=== PATIENT | male | born 1955 | race Caucasian/White ===

== ENCOUNTER 2019-01-07 06:27 | Day surgery (SDC) | payer OTHER ==
[2019-01-07] MEDS ORDERED: Ringers Lactate 1,000 ML IV ONE (06:31)
[2019-01-07] MEDS ORDERED: LIDOCAINE 1% MPF 30 ML VIAL ONE (07:12)
[2019-01-07] MEDS ORDERED: PROPOFOL 200 MG/20 ML VIAL IV ONE ×2 (07:12→08:19)
[2019-01-07] MEDS ORDERED: SUCCINYLCHOLINE 20 MG/ML (10 ML) IV ONE (07:22)
--- NOTE | 2019-01-07 08:23 | ENDO RPT ---
[address], [address] COLONOSCOPY PROCEDURE REPORT EXAM DATE: 01/07/2019 PATIENT NAME: Wilfredo Raymundo MR #: [id number] BIRTHDATE: 1955 ATTENDING: Braxton Blair Dr STATUS: outpatient OPTOELECTRONICS ENGINEER: Kavon Montes RN, Deann Cooper, and Nargis Bai RN INDICATIONS: The patient is a 63 yr old Male here for a colonoscopy due to colon cancer screening and family history of colon cancer PROCEDURE PERFORMED: Colonoscopy with biopsy - cold polypectomy, Colonoscopy with snare polypectomy, and Colon w/ endoclip MEDICATIONS: Per Anesthesia. ESTIMATED BLOOD LOSS: None CONSENT: The patient understands the risks and benefits of the procedure and understands that these risks include, but are not limited to: sedation, allergic reaction, infection, perforation and/or bleeding. Alternative means of evaluation and treatment include, among others: physical exam, x-rays, and/or surgical intervention. The patient elects to proceed with this endoscopic procedure. DESCRIPTION OF PROCEDURE: During intra-op preparation period all mechanical medical equipment was checked for proper function. Hand hygiene and appropriate measures for infection prevention was taken. Procedure, possible complications, alternatives including, but not limited to possibility of bleeding, perforation, tear, infection, sepsis, need for surgery, need for blood transfusion, were explained to the patient. After the risks, benefits and alternatives of the procedure were thoroughly explained, Informed consent was verified, confirmed and timeout was successfully executed by the treatment team. The patient was placed in the left lateral position. A digital rectal exam was performed and revealed an anal condylomata. After appropriate level of anesthesia, the scope was passed. The EC-[id number] ([id number]) endoscope was introduced through the anus and advanced to the terminal ileum which was intubated for a short distance. The quality of the prep was good. The instrument was then slowly withdrawn as the colon was fully examined. Scope withdrawal time was 9 minutes. COLON FINDINGS: A smooth sessile polyp measuring 3 mm in size was found at the ileocecal valve. A polypectomy was performed with cold forceps. A smooth flat polyp measuring 1 cm in size was found in the ascending colon. A polypectomy was performed with a cold snare. The wound at the site was closed by placing hemoclips. One (1) placement was made. There was minimal blood loss from maneuver subsiding by end of procedure. One (1) placement was made. There was minimal blood loss from maneuver subsiding by end of procedure. A smooth flat polyp measuring 9 mm in size was found in the sigmoid colon. A polypectomy was performed with a cold snare. Bleeding at the site was controlled using hemoclips. One (1) placement was made. There was minimal blood loss from maneuver subsiding by end of procedure. Mild diverticulosis was noted in the sigmoid colon. No bleeding was noted from the diverticulosis. Small internal hemorrhoids were found. Retroflexed views revealed small hemorrhoids. The scope was then completely withdrawn from the patient and the procedure terminated. ADVERSE EVENTS: There were no complications. IMPRESSIONS: 1. 3 mm sessile polyp at the ileocecal valve; polypectomy was performed with cold forceps 2. 1 cm flat polyp in the ascending colon; polypectomy was performed with a cold snare; the wound at the site was closed by placing hemoclips 3. 9 mm flat polyp in the sigmoid colon; polypectomy was performed with a cold snare; bleeding at the site was controlled using hemoclips 4. Mild diverticulosis was noted in the sigmoid colon 5. Small internal hemorrhoids 6. Intubation to terminal ileum 7. 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 await biopsy results 2. avoid NSAIDS for 2 weeks 3. fiber rich diet RECALL: Return in 3 year(s) for Colonoscopy. Braxton Blair Dr eSigned: Braxton Blair Dr 01/07/2019 8:23 AM cc: Toño Alexandre CPT CODES: ICD9 CODES: 1. 078.10 Viral warts, unspecified 2. 211.3 Benign neoplasm of colon PATIENT NAME: Wilfredo Raymundo MR#: [id number]
[2019-01-07 08:26] VITALS: TEMP 98.4
[2019-01-07 08:29] VITALS: BP 98/64; O2SAT 94
== END 2019-01-07 08:35 | disposition home or self-care (01) ==
LOC: OR 06:27
PROVIDERS: ATTEND Internal Medicine Gastroenterology
PROC: 0DBK8ZX Excision of Ascending Colon, Via Natural or Artificial Opening Endoscopic, Diagnostic (ICD-10-PCS; 2019-01-07)
PROC: 0DBN8ZX Excision of Sigmoid Colon, Via Natural or Artificial Opening Endoscopic, Diagnostic (ICD-10-PCS; 2019-01-07)
PROC: 0DBC8ZX Excision of Ileocecal Valve, Via Natural or Artificial Opening Endoscopic, Diagnostic (ICD-10-PCS; principal; 2019-01-07 07:30)
DX: Z12.11 Encounter for screening for malignant neoplasm of colon (principal); D12.2 Benign neoplasm of ascending colon; D12.0 Benign neoplasm of cecum; K57.30 Diverticulosis of large intestine without perforation or abscess without bleeding; K64.8 Other hemorrhoids; G47.33 Obstructive sleep apnea (adult) (pediatric); I10 Essential (primary) hypertension; J44.9 Chronic obstructive pulmonary disease, unspecified; E66.01 Morbid (severe) obesity due to excess calories; M19.90 Unspecified osteoarthritis, unspecified site; F17.200 Nicotine dependence, unspecified, uncomplicated; Z80.0 Family history of malignant neoplasm of digestive organs
CPT/HCPCS: 88305; 45380; 45385; J2704 ×2; J0330; J7120

== ENCOUNTER 2021-07-26 11:03 | Day surgery (SDC) | payer OTHER ==
[2021-07-21 15:28] LABS: Absolute Lymphocytes (CBC) 2.1 K/uL (0.7-4.9); Hematocrit 47.5 % (39.6-49.0); Lymphocytes % 18.9 % (15.3-44.8); Protime INR 0.97; RBC Red Blood Cell Count 4.81 M/uL (4.33-5.43)
[2021-07-21 15:37] LABS: Potassium 4.2 mmol/L (3.5-5.1)
--- NOTE | 2021-07-21 16:13 | RAD REPORT ---
EXAM DESCRIPTION: RAD - Chest Pa And Lat (2 Views) - 07/21/2021 3:22 pm CLINICAL HISTORY: PREOP COMPARISON: CHEST PA AND LAT 2 VIEW dated 09/05/2013 FINDINGS: Lines: None. Lungs: No evidence of edema or pneumonia. Emphysema suspected. Pleural: No significant pleural effusions or pneumothorax. Cardiac: The heart size is within normal limits. Bones: No acute fractures. Other: IMPRESSION: No acute cardiopulmonary disease. The USPTF recommends annual screening for lung cancer with low-dose CT (LDCT) in adults aged 50 to 8 0 years who have a 20 pack-year smoking history and currently smoke or have quit within the past 15 y ears.
[2021-07-21 20:07] LABS: Blood Morphology Comment NOT SEEN (NOT SEEN); Platelet Estimate ADEQ; White Blood Cell Scan OK (OK)
[2021-07-26] MEDS ORDERED: Ringers Lactate 1,000 ML IV ONE (11:39)
[2021-07-26] MEDS ORDERED: CEFAZOLIN/SWI 2gm 2 GM/20 ML SYR ONE (11:39)
[2021-07-26] MEDS ORDERED: TRIAMCINOLONE ACETON 40 MG/ML VIAL ONE (14:02)
[2021-07-26] MEDS ORDERED: propofoL 200 MG/20 ML VIAL IV ONE ×2 (14:07→14:33)
[2021-07-26] MEDS ORDERED: FENTANYL CITR 100 MCG/2 ML ONE (14:08)
[2021-07-26] MEDS ORDERED: LIDOCAINE 1% MPF 5 ML VIAL ONE (14:08)
[2021-07-26] MEDS ORDERED: KETOROLAC 30 MG/ML INJ ONE (14:21)
[2021-07-26] MEDS ORDERED: EPHEDRINE SULF 50 MG/ML VIAL ONE (14:41)
[2021-07-26] MEDS ORDERED: NS 0.9% VIAL 10 ML ONE ×2 (14:41→14:50)
[2021-07-26] MEDS ORDERED: Phenylephrine HCl 10 MG/ML 1 ML VIAL ONE (14:50)
[2021-07-26] MEDS ORDERED: CODEINE 30MG/APAP 300MG TAB PO PRN (15:48)
[2021-07-26] MEDS ORDERED: PHENAZOPYRIDINE 100MG TAB PO ONE (15:48)
[2021-07-26 15:54] VITALS: O2SAT 93
[2021-07-26 16:46] VITALS: BP 110/59; TEMP 98
--- NOTE | 2021-07-26 20:55 | RAD REPORT ---
EXAM DESCRIPTION: RAD - Urethrocystogrphy Retrograde - 07/26/2021 4:09 pm CLINICAL HISTORY: URETHRAL DIALATION COMPARISON: No comparisons FINDINGS/IMPRESSION: Twelve intraoperative fluoroscopic images were submitted showing cannulation of the urethra with a guidewire and catheter with subsequent dilatation of the urethra. Contrast was in jected into the bladder.
--- NOTE | 2021-07-27 02:27 | OP ---
Surgeon: LEA WILLIAMSON Preoperative Diagnoses: 1.Meatal stenosis. 2.Urethral stricture disease/pipestem urethra. Postoperative Diagnoses: 1.Meatal stenosis. 2.Urethral stricture disease/pipestem urethra. Procedures: 1.Meatal dilation using sounds. 2.Cystourethroscopy with brush biopsy. 3.Sequential urethral dilation over a wire. 4.Complex/complicated placement of a 22-Albanian Hernandez catheter over a wire. 5.Intraoperative cystogram. Indication For Procedure: Mr. Raymundo is a 65-year-old gentleman who presented to [facility]rology Clinic with some irritative urinary symptoms. He underwent outpatient cystoscopic evaluation revealing meatal st enosis and significant urethral stricture disease prohibiting passage of the 16-Albanian flexible cysto scope. As a result, I recommended operative evaluation and management and he presents today having r eceived a course of Keflex for presumptive urethritis. Procedure In Detail: The patient was consented in the preoperative holding area before being transfe rred to the operative suite where general anesthesia was induced. He was given Ancef IV antimicrobia l prophylaxis and Pneumoboots were provided for DVT prophylaxis. He was placed in the lithotomy posi tion, padded and secured to the table appropriately. His genitalia were prepped using Hibiclens and he was draped in standard fashion. The case was begun using urethral sounds to dilate the meatus, wh ich was very stenotic from 16-Albanian up to 24-Albanian. I was then able to just insert the tip of the cystoscope into the meatus and visualized a very pinpoint opening there. Using a 5-Albanian ureteral a ccess catheter and a Sensor wire, I was able to navigate the wire beyond this point of visible obstru ction and through the urethra putatively into the bladder. To confirm the intravesical location, giv en his morbid obesity and concern for extreme difficulty in placing a suprapubic catheter where that to become necessary, I requested fluoroscopy to join the case and performed an intraoperative cystogr am where I passed a 5-Albanian ureteral access catheter over the wire and into the bladder. I then con firmed the wire and the catheter coiling within the bladder and injected contrast, which did fill the lumen of the bladder indicating the appropriate intravesical location. After confirming the appropr iate intravesical location of the wire, I then utilized sequential dilators to dilate from 18-Albanian up to 24-Albanian with some difficulty passing most of the catheters via the urethra into the bladder. However, I utilized fluoroscopy to confirm each time that the catheter was appropriately entering th e bladder. After dilating to 24-Albanian, I was then able to pass the cystoscope via the urethra and n avigated into his bladder. Cystoscopic findings revealed a normal bladder with no mucosal lesions, foreign bodies, or stones not ed throughout. The ureteral orifices were orthotopic in location and the urine was essentially clear except for blood that was passed into the bladder retrograde from the urethral dilation. The prosta tic urethra was nonobstructive in appearance with minimal lateral lobar hypertrophy and minimal eleva tion of a median bar without any intravesically projecting median lobe. As a result, I surveyed the now dilated urethra on the way out and it was scarred throughout with fibrinous debride along multipl e points. As a result, I employed a brush biopsy to take a sample of the cells in the area and sent it for cytologic analysis to rule out malignancy. I then attempted to back load the direct vision in ternal urethrotome into his urethra using the blunt roller operator, but despite further dilation of his wendy tus using sounds, I was unable to successfully navigate it into/beyond his meatus. As a result, furt her attempts to incise the scarred area were aborted and I then placed a guidewire into his bladder u nder direct vision cystoscopically and passed a 22-Albanian urethral Hernandez catheter over the wire into the bladder with great difficulty. I confirmed the catheter is in appropriate intravesical location by observing drainage of urine and then retrograde injecting contrast, again using fluoroscopy to con firm appropriate intravesical filling with contrast via cystogram. Once this was done, I filled the balloon with 20 cc of sterile water and the patient was then taken out of the lithotomy position. Hi s catheter was secured to his upper thigh using a catheter securing device, and he was awakened from general anesthesia. He was then transferred to a stretcher and then to the recovery room in good con dition. Complications: None. Discharge Disposition: I am going to discharge him with a prescription for Levaquin 500 mg once adele y for at least 12-14 days. He may follow up in the Urology Clinic somewhere between 10-14 days from now for catheter removal and voiding trial. He should continue the Levaquin for at least 1 day after the catheter was removed. Subsequent followup would then be for cystoscopic re-evaluation somewhere in 2-3 months from today to ensure absence of restenosis of his urethra or the meatus. Otherwise, t he patient was instructed to employ bacitracin around the meatus and the glans of the penis once a da y and apply the Lotrisone cream previously prescribed to the glans penis and shaft skin affected from chronic inflammation. FRANCESCO/ISMAEL Voice ID: [id number] Report ID: [id number]
== END 2021-07-26 16:50 | disposition home or self-care (01) ==
LOC: OR 11:03
PROVIDERS: ATTEND Urology
PROC: BT1BZZZ Fluoroscopy of Bladder and Urethra (ICD-10-PCS; 2021-07-26)
PROC: 0T7D8ZZ Dilation of Urethra, Via Natural or Artificial Opening Endoscopic (ICD-10-PCS; principal; 2021-07-26 13:00)
DX: N35.111 Postinfective urethral stricture, not elsewhere classified, male, meatal (principal); N35.11 Postinfective urethral stricture, not elsewhere classified, male; R31.29 Other microscopic hematuria; N47.7 Other inflammatory diseases of prepuce; R39.9 Unspecified symptoms and signs involving the genitourinary system; N34.2 Other urethritis; Z20.822 Contact with and (suspected) exposure to COVID-19
CPT/HCPCS: 52281; 93005; 87088; 85025; 87086; 80048; 36415; 88108; 85610; 88305; 71046; 74450; 51610; U0003; J2704 ×2; J2370; J3010; J0690; J7120; J3301

== ENCOUNTER 2022-08-23 06:05 | Day surgery (SDC) | payer OTHER ==
[2022-08-22 15:03] LABS: Absolute Lymphocytes (CBC) 1.9 K/uL (0.7-4.9); Hematocrit 44.1 % (39.6-49.0); Lymphocytes % 21.4 % (15.3-44.8); MCV 99.4 fL (80-100); MPV 8.2 fL (7.6-11.3); RBC Red Blood Cell Count 4.44 M/uL (4.33-5.43)
[2022-08-22 15:14] LABS: Potassium 4.5 mEq/L (3.5-5.1)
[2022-08-23] MEDS ORDERED: Ringers Lactate 1,000 ML IV ONE (06:40)
[2022-08-23] MEDS ORDERED: FENTANYL CITR 100 MCG/2 ML ONE ×2 (07:42→08:37)
[2022-08-23] MEDS ORDERED: propofoL 200 MG/20 ML VIAL IV ONE (07:43)
[2022-08-23] MEDS ORDERED: LIDOCAINE 2% MPF 5 ML VIAL ONE (07:43)
[2022-08-23] MEDS ORDERED: MIDAZOLAM HCL 2 MG/2 ML INJ ONE (07:43)
[2022-08-23] MEDS: CEFAZOLIN SODIUM 1 GM/VIAL ONE ×2 (07:50→08:12)
[2022-08-23] MEDS ORDERED: ROCURONIUM 50 MG/5 ML VIAL IV ONE (07:51)
[2022-08-23] MEDS ORDERED: SUGAMMADEX SODIUM 200 MG/2 ML VIAL IV ONE (08:10)
[2022-08-23] MEDS ORDERED: CEFAZOLIN SODIUM 1 GM/VIAL ONE (08:19)
--- NOTE | 2022-08-23 08:25 | P.BOP ---
Preoperative diagnosis: perisacral ulcerated mass, hx of condyloma Postoperative diagnosis: same Primary procedure: Wide excision of perisacral ulcerated mass [id number] Cutter: ALIN JACKSON (FLOTATION TENDER HELPER) Estimated blood loss: <10cc Specimen: mass Findings: mass Anesthesia: General Complications: None Drain(s): Other (nugauze 1/4 " packing) Transferred to: Recovery Room Condition: Good
[2022-08-23] MEDS ORDERED: NEOSTIGMINE 1 MG/ML -10 ML VIAL ONE (08:31)
[2022-08-23] MEDS ORDERED: GLYCOPYRROLATE 0.2 MG/ML SYR ONE (08:35)
[2022-08-23] MEDS ORDERED: KETOROLAC 30 MG/ML INJ ONE (08:39)
[2022-08-23] MEDS ORDERED: METOPROLOL TARTRATE 5 MG/5 ML INJ IV ONE (08:44)
[2022-08-23 09:37] VITALS: BP 136/73; TEMP 97.8; O2SAT 92
== END 2022-08-23 10:00 | disposition home or self-care (01) ==
LOC: OR 06:05
PROVIDERS: ATTEND Surgery
PROC: 0JBB0ZZ Excision of Perineum Subcutaneous Tissue and Fascia, Open Approach (ICD-10-PCS; 2022-08-23)
PROC: 0JB70ZZ Excision of Back Subcutaneous Tissue and Fascia, Open Approach (ICD-10-PCS; principal; 2022-08-23 07:30)
DX: B07.9 Viral wart, unspecified (principal)
CPT/HCPCS: 11406; 11426; 85025; 80048; 36415; 88304; J2704; J2710; J2001; J2250; J3010 ×2; J7120; J0690 ×2